=== PATIENT | male | born 2000 | race Caucasian/White ===

== ENCOUNTER 2020-12-09 14:47 | Inpatient (IN) | payer MEDICAID, OTHER ==
[2020-12-09 17:42] LABS: Amphetamine Screen,Urine Not Detected (NotDetected); Barbiturate Screen,Urine Not Detected (NotDetected); Benzodiazepines Screen,Urine Not Detected (NotDetected); Cocaine Screen,Urine Not Detected (NotDetected); Methadone Screen, Urine Not Detected (NotDetected); Opiate Screen,Urine Not Detected (NotDetected); Oxycodone Screen, Urine Not Detected (NotDetected); Phencyclidine Screen,Urine Not Detected (NotDetected); Tricyclic Antidepressant,Urine Not Detected (NotDetected); Urn Cannabinoid Scrn Detected (NotDetected)
--- NOTE | 2020-12-09 19:59 | ED ---
Psych HPI - General Chief Complaint: Psychiatric Symptoms Stated Complaint: mental health Time Seen by Provider: 12/09/20 16:21 Source: patient Mode of arrival: ambulatory - History of Present Illness Initial Comments: This 20-year-old white male presents with a complaint of depression. He has a long-standing history of depression but it has been worse recently. He has thoughts of suicide at times but states that he would never act on it. He apparently was started on a depression medication yesterday as well as some but this does not seem to have alleviated his symptomatology. He is denying any hallucinations or delusions. He is presenting with family are requesting a mental health evaluation for further treatment and her recommendations. He denies any medical complaints currently. - Related Data Home Medications Medication Instructions Recorded Confirmed Escitalopram [Lexapro] 10 mg PO DAILY 12/09/20 12/09/20 busPIRone HCl [Buspar] 5 mg PO BID 12/09/20 12/09/20 Allergies Allergy/AdvReac Type Severity Reaction Status Date / Time No Known Allergies Allergy Verified 12/09/20 15:36 Review of Systems ROS Statement: Those systems with pertinent positive or pertinent negative responses have been documented in the HPI. ROS Other: All systems not noted in ROS Statement are negative. Past Medical History Past Medical History: No Reported History Additional Past Medical History / Comment(s): covid 09/05 History of Any Multi-Drug Resistant Organisms: None Reported Past Surgical History: No Surgical Hx Reported Past Psychological History: No Psychological Hx Reported Smoking Status: Never smoker Past Alcohol Use History: Rare Past Drug Use History: None Reported General Exam - General Exam Comments Initial Comments: GENERAL: The patient is well nourished and well hydrated. VITAL SIGNS: Heart rate, blood pressure, respiratory rate reviewed as recorded in nurse's notes. EYES: Pupils are round and reactive. Extraocular movements are intact. No conjunctival / lid redness or swelling. ENT: No external evidence of injury, swelling, or ecchymosis. Airway is patent. Throat is clear. NECK: Nontender. No swelling or evidence of injury. No subcutaneous emphysema. Trachea is midline. No thyroid mass. HEART: Regular rate and rhythm. Good peripheral pulses. LUNGS/CHEST: Breath sounds clear and equal bilaterally. No rales, rhonchi, or wheezes. No ecchymosis, subcutaneous emphysema, or tenderness. ABDOMEN: Abdomen soft without tenderness. No palpable masses or organomegaly. No peritoneal signs. No abdominal wall swelling or ecchymosis. EXTREMITIES: No extremity tenderness. Normal muscle tone and function. No thoracolumbar tenderness. NEUROLOGIC: Sensation is grossly intact. Cranial nerve exam reveals face is symmetrical, tongue is midline, speech is clear. SKIN: No abrasions or ecchymosis is noted. No induration or masses noted. PSYCHIATRIC: Alert and oriented. Appropriate behavior and judgment. Limitations: no limitations Course Vital Signs 12/09/20 15:30 Temperature 97.7 F Pulse Rate 56 L Respiratory 18 Rate Blood Pressure 140/92 O2 Sat by Pulse 99 Oximetry Medical Decision Making - Medical Decision Making The patient was seen and examined. All diagnostics were reviewed. The breath alcohol test was negative. It is felt as though the patient is medically cleared for further psychiatric evaluation. Anthony is discussed with the psychiatric nurse and she feels as though patient would require inpatient psychiatric treatment. He will be transferred to our inpatient psychiatric unit in the near future. - Lab Data Lab Results 12/09/20 Range/Units 17:09 Urine Opiates Screen Not Detected (NotDetected) Ur Oxycodone Screen Not Detected (NotDetected) Urine Methadone Screen Not Detected (NotDetected) Ur Propoxyphene Screen Not Detected (NotDetected) Ur Barbiturates Screen Not Detected (NotDetected) U Tricyclic Antidepress Not Detected (NotDetected) Ur Phencyclidine Scrn Not Detected (NotDetected) Ur Amphetamines Screen Not Detected (NotDetected) U Methamphetamines Scrn Not Detected (NotDetected) U Benzodiazepines Scrn Not Detected (NotDetected) Urine Cocaine Screen Not Detected (NotDetected) U Marijuana (THC) Screen Detected H (NotDetected) Disposition Clinical Impression: Depression Disposition: ADMITTED IP TO THIS [facility] Condition: Fair Referrals: Ramana Cabello MD [Primary Care Provider] - 1-2 days Time of Disposition: 20:45 Decision Date: 12/09/20 Decision Time: 20:46
[2020-12-09] MEDS ORDERED: MAG HYDROX/AL HYDROX/SIMETH 30 ML CUP PO PRN (21:33)
[2020-12-09] MEDS ORDERED: LORazepam 1 MG TAB PO PRN (21:33)
[2020-12-09] MEDS ORDERED: MAGNESIUM HYDROXIDE 2,400 MG/10 ML CUP PO PRN (21:33)
[2020-12-09] MEDS ORDERED: ACETAMINOPHEN TAB 325 MG TAB PO PRN (21:33)
[2020-12-09] MEDS ORDERED: LORazepam 2 MG/ML INJ IM PRN (21:35)
[2020-12-09] MEDS ORDERED: HALOPERIDOL LACTATE 5 MG/ML 1 ML VIAL IM PRN (21:36)
[2020-12-10] MEDS: NICOTINE 14MG/24HR PATCH TRANSDERM SCH (08:44)
[2020-12-10 12:05] LABS: Basophils % (A) 0 %; Eosinophils # (A) 0.2 k/uL (0-0.7); Eosinophils % (A) 2 %; HCT 45.2 % (39.0-53.0); HGB 15.3 gm/dL (13.0-17.5); Lymphocytes # (A) 1.5 k/uL (1.0-4.8); Lymphocytes % (A) 23 %; MCH 27.6 pg (25.0-35.0); MCHC 33.8 g/dL (31.0-37.0); MCV 81.8 fL (80.0-100.0); Monocytes # (A) 0.5 k/uL (0-1.0); Monocytes % (A) 8 %; Neutrophils # (A) 4.1 k/uL (1.3-7.7); Neutrophils % (A) 64 %; Platelet Count 206 k/uL (150-450); RBC 5.53 m/uL (4.30-5.90); RDW 13.8 % (11.5-15.5); WBC 6.5 k/uL (3.8-10.6)
[2020-12-10 12:24] LABS: ALT 13 U/L (4-49); AST 26 U/L (17-59); African American GFR (CKD) >90 (>60 ml/min/1.73 sqM); Albumin 4.7 g/dL (3.5-5.0); Alkaline Phosphatase 66 U/L (38-126); Anion Gap 10 mmol/L; Blood Urea Nitrogen 14 mg/dL (9-20); Calcium 9.9 mg/dL (8.4-10.2); Carbon Dioxide 29 mmol/L (22-30); Chloride 101 mmol/L (98-107); Glucose 81 mg/dL (74-99); Non-African American GFR(CKD) >90 (>60 ml/min/1.73 sqM); Potassium 4.7 mmol/L (3.5-5.1); Sodium 140 mmol/L (137-145); Total Bilirubin 0.9 mg/dL (0.2-1.3); Total Protein 7.7 g/dL (6.3-8.2)
[2020-12-10] MEDS: ESCITALOPRAM 20 MG TAB PO SCH (12:59)
--- NOTE | 2020-12-10 16:10 | HP ---
HISTORY AND PHYSICAL DATE OF SERVICE: 12/10/2020 IDENTIFYING DATA: The patient is a 20-year-old male. He lives with his mother and 2 siblings. He was referred through the ED for evaluation. CHIEF COMPLAINT: The patient has been depressed. He had suicide thinking. He said he "broke down on Sunday." HISTORY OF PRESENTING ILLNESS: The patient was the primary source of information. Patient has not had a prior psychiatric hospitalization. The patient reports a long-term problems with depression. He seems to indicate that depression goes back about 4 years when his father from diabetes. He said that he would get some brief periods of having low mood, though that would typically go away. He said this past February at the anniversary of his father's passing, things seem to get worse for him. He could not really describe why. He has had on and off depression over the last several months though he says for the most part, he has been able to manage it and has not been severe. He notes that over the last several days, things seem to be building up for him. He said he had a difficult day at work a week ago and then that led into a "bad weekend." He was avoiding people including his family. He was not responding to messages from his mother. He was quite withdrawn. He said on Sunday he just broke down. He started crying. He was in a very distressed state. He could not explain what led to this as far as any particular event or situation. He since has had thoughts of suicide. He notes that he does not have any plan or intent. He has not had a history of self harmful behavior. He was started on some psychotropic medications through his family doctor, Dr. Cabello. Just in the last several days, he got started on BuSpar and then just a day or 2 ago he was also started on Lexapro 10 mg a day. He has only taken the Lexapro for 1 day. He has not had any problems with the start of these medications. He does not note any issues with hallucinations or delusional thinking. He says he does get anxiety that will come and go. Sometimes he feels that he has fairly bad anxiety though he does some relaxation techniques and seems to be able to handle that. He does not identify panic symptoms. He does not identify any past trauma or post-traumatic issues. He says if he goes back a month or so ago he had fairly good motivation, energy and interest. He could enjoy things. He involved himself in boxing in the morning time as one of his outlets. He says he has just started in boxing and has not gotten into any situation where he has gotten hit in the head. He notes that he generally sleeps okay, though he does have a somewhat difficult sleep schedule as he works 2nd shift. He gets off of work at 11:00 pm. He will be up until about 3 or 4 in the morning just with unwinding and doing some personal activities. He says that on the weekend, he does spend time with friends and has some reasonable social outlets. He is admitted for further evaluation. The patient has been in some individual counseling. He said for a period of time he was in counseling in [id number] sessions. He then went to virtual sessions. He stopped counseling a few months ago, though says he wants to get back with his counselor. SUBSTANCE USE HISTORY: Patient reports no significant substance use issues. He says he smokes marijuana perhaps once a week or once every other week, though not more than that. He does drink alcohol but very infrequently. PAST MEDICAL HISTORY: Patient does not report any significant or chronic general health complaints. FAMILY AND SOCIAL HISTORY: The patient currently is living with his mother and 2 younger siblings, a brother and sister. He said his parents when he was around age 3. 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 He says sometimes the work is stressful. He notes that he was active during his teenage years with sports. He graduated from high school. He did 1 semester at [employer] in criminal justice. He did another semester, though then gave up on his college education at the time that his father . He has been working as a LAN/WAN ENGINEER for 1 year. He says he has an interest in going into a nursing. MENTAL STATUS EXAM: Patient sat with some restlessness. He gave fair eye contact. He tended to look down or away on off through the interview. He answered questions with brief responses. His thoughts were clear, coherent and goal-directed. He did not say a lot. He was not spontaneous or interactive. His affect was flat. His mood depressed. He was moderately distressed. There was no indication of thought disorder. He acknowledged some thoughts about suicide, though noted no plan, intent or history of self harm. On cognitive exam, he was oriented x3 and alert. He could recall 2/3 objects in 4 minutes. He could give the days of the week in reverse order without difficulty. He had fair insight and judgment. Fund of knowledge was average or somewhat above average. ASSESSMENT: This 20-year-old male is diagnosed with major depression. He had some possible issues with unresolved grief with the loss of his father that may have intensified depression. He has had high stress over the last week that set off his current situation leading to him coming into the hospital. STRENGTHS: Include [place] [employer] and his focus on going into the healthcare profession. WEAKNESS: Includes struggles with anxiety and grief. DIAGNOSES: Major depression, without psychotic features. RECOMMENDATIONS: Patient will be admitted for comprehensive medical psychiatric and psychosocial evaluation. We will engage the patient in individual and group therapeutic activities. We will continue the patient on Lexapro. His dose will be increased to 20 mg a day. I had an extensive discussion with the patient regarding treatment issues related to antidepressants. We talked about the time course for treatment and expectations. I reviewed potential side effects. We will look to coordinate with his primary care physician in regards to continued treatment for depression. I would also coordinate with his therapist for followup individual counseling. We will focus on stabilization and discharge planning. AUSTIN / MARCOS: [id number] /
--- NOTE | 2020-12-10 17:33 | CONS ---
CONSULTATION CHIEF COMPLAINT: Major depression. HISTORY OF PRESENT ILLNESS: This is a first admission for this 20-year-old white male. He became depressed and has been in the office recently for this, but was not suicidal. Over the last year or two he has lost his father and grandfather. He was not contemplating suicide. REVIEW OF SYSTEMS: He has had no headaches, neurologic problems, difficulty with vision or hearing, chest pain, shortness of breath, cough, hemoptysis, hypertension, heart disease, murmurs, abdominal pain, nausea, vomiting, hematemesis, melena, hematochezia, jaundice, hepatitis, renal failure, frequency, urgency and dysuria, incontinence, nocturia, diabetes, etc. Past medical history, family history and personal and social histories are otherwise unremarkable and noncontributory. He has been given a trial on Buspar, which does not seem to help a great deal. He is not allergic to any medications. He has had no surgery. He does not smoke. Drinks alcohol occasionally. He is employed as a GOPAL in a assisted. PHYSICAL EXAMINATION: Blood pressure 122/80, pulse of 80, respirations 16. He is afebrile. In general he appeared to be slender in no acute distress. Skin color is normal. Skin is warm, dry. Lymph nodes were not enlarged. Head, ears, eyes, nose, mouth and throat were normal. Neck veins not distended. Thyroid not enlarged. Chest is clear. Cardiac exam is normal. Abdomen is soft, nontender. Extremities: Normal. Neurologically he is intact. IMPRESSION: He is admitted to the hospital with diagnosis: 1. Major depression. PLAN: No recommended changes to program. MMODL / IJN: [id number] /
[2020-12-10 20:17] LABS: Chol/HDL Ratio 3.76; Cholesterol 139 mg/dL (0-200); LDL Cholesterol,Calculated 90.8 mg/dL (0.0-131.0)
[2020-12-10 22:20] LABS: Estimated Average Glucose 116.89; Hemoglobin A1C 5.7 % (4.0-6.0)
[2020-12-11] MEDS: ESCITALOPRAM 20 MG TAB PO SCH (08:45)
[2020-12-11] MEDS: NICOTINE 14MG/24HR PATCH TRANSDERM SCH (08:46)
--- NOTE | 2020-12-11 15:11 | P.PN ---
Progress Note - Text Progress Note Date: 12/11/20 Clinical Problems: Major depressive disorder without psychotic features Interim history: I reviewed the medical record and interviewed the patient. He is a 20-year-old single male who presented to the psychiatric unit voluntarily plans of increasing depression and suicidal ideation. He described increasing depression since at least February 2020 and on the day of admission became markedly distressed and tearful. He told the EPS nurse that he was having thoughts of suicide. He denied use of alcohol or drugs. His urine drug screen was positive only for marijuana. He described improvement in his depression with the increasing dose of Lexapro. His current dose is 20 mg per day. He described being able to concentrate and socialize with staff or peers. He denied that he is currently having suicidal thoughts. Mental status exam: . He presented as a casually groomed young male who was pleasant on approach. He made eye contact and attended to the interview. He had no prominent physical abnormalities. He had a blunted facial expression. He had slight psychomotor retardation but no abnormal involuntary movements. His affect was depressed and minimally reactive. She denied suicidal ideations, wishes or homicidal ideation. He denied feeling hopeless, helpless or worthless. He didn't express ideas reference, paranoid ideation or delusions. His sticking was concrete but his associations were coherent, logical goal directed. He denied hallucinations didn't appear to be responding to internal stimuli. Assessment: He is moderately mentally ill and much improved from admission. He is denying suicidal ideation lacking control over her emotions. Plan: He knew inpatient treatment. Safety precautions. Plan discharge on 12/13/2020. Continue Lexapro 20 mg daily. Ativan/Haldol when necessary for agitation, anxiety acute psychosis. Her maternal for smoking cessation. cinder crew worker to coordinate aftercare including referral for individual therapy. Encouraged continued participation in therapy groups and activities. Evaluate clinical status response to treatment daily basis.
[2020-12-12] MEDS: NICOTINE 14MG/24HR PATCH TRANSDERM SCH (08:43)
[2020-12-12] MEDS: ESCITALOPRAM 20 MG TAB PO SCH (08:44)
--- NOTE | 2020-12-12 15:13 | P.PN ---
Progress Note - Text Progress Note Date: 12/12/20 Clinical Problems: Major depressive disorder without psychotic features Interim history: I reviewed the medical record and interviewed the patient. He denied problems or concerns other than discharge. He feels much less depressed admission and is denying that he is currently experiencing thoughts of or suicide. He is not attending therapeutic groups and activities. He spends much of his time alone in bed, for meals and medications. He slept 6 hours last night. Mental status exam: . He presented as a casually groomed young male who was pleasant on approach. He made eye contact and attended to the interview. He had no prominent physical abnormalities. He had a blunted facial expression. He had slight psychomotor retardation but no abnormal involuntary movements. His affect was depressed and minimally reactive. She denied suicidal ideations, wishes or homicidal ideation. He denied feeling hopeless, helpless or worthless. He didn't express ideas reference, paranoid ideation or delusions. His sticking was concrete but his associations were coherent, logical goal directed. He denied hallucinations didn't appear to be responding to internal stimuli. Assessment: He is moderately mentally ill and moderately improved from admission. He is denying suicidal ideation lacking control over her emotions. Plan: Continue inpatient treatment. Safety precautions. Plan discharge on 12/13/2020. Continue Lexapro 20 mg daily. Ativan/Haldol when necessary for agitation, anxiety acute psychosis. Her maternal for smoking cessation. harm reduction worker to coordinate aftercare including referral for individual therapy. Encouraged continued participation in therapy groups and activities. Evaluate clinical status response to treatment daily basis.
[2020-12-13] MEDS: NICOTINE 14MG/24HR PATCH TRANSDERM SCH (09:00)
[2020-12-13] MEDS: ESCITALOPRAM 20 MG TAB PO SCH (09:00)
--- NOTE | 2020-12-13 09:21 | P.PN ---
Progress Note - Text Progress Note Date: 12/13/20 Interval History: Patient was seen lying in his bed this morning and was directable and agreeable to speak with radio script writer in the office. He appears to be fairly directable and cooperative during the interview. He was constricted at times and his affect however states that he is gradually improving in terms of his mood and is denying any anxiety today. He states that he came in on Sunday because he was having "a mental breakdown" mainly triggered by the of his father. He states that he had a difficult time sleeping last night and required Ativan. She was agreeable to try trazodone for tonight. He states that he has been trying to go to some groups. At this time patient denies any suicidal or homical ideations, intent or plan. Patient denies any auditory, visual hallucinations and denies any paranoia or delusions. Patient denies any side effects from the medications and has been compliant with meds. Mental Status Exam: General Appearance: Patient appears to be stated age is alert, directable, and cooperative. Constricted Behavior: Patient is calmly seated without any agitated behavior. Attempts to cooperate Speech: Patient's speech is fluent and nonpressured. Mood/Affect: Mood is improving mildly, affect is congruent and constricted. Suicidality/Homicidality: Patient denies having any suicidal or homicidal ideation intent or plan. Perceptions: Patient denies any visual hallucinations and denies any auditory hallucinations Though content/process: [place], goal oriented. Not endorsing any delusions or paranoia. Memory and concentration: AOX3, grossly intact for the purposes of this session Judgment and insight: Improving mildly Assessment Major depressive disorder, without psychotic features Cannabis use disorder Nicotine dependence Plan: -Patient continues to meet criteria for inpatient psychiatric admission for symptom stabilization and safety. Patient has signed adult voluntary form and medication consent and was placed in patient's chart. -Medications: Continue with Lexapro 20 mg daily for mood/anxiety. Added trazodone 25 mg daily at bedtime for insomnia/mood. Discussed with patient the risk of priapism and to seek urgent medical attention if this does occur, patient verbally understood and agreed -When necessary Ativan and Haldol for agitation/aggression. -NRT - nicotine patch -SW on board for discharge planning. Encouraged the patient to participate in milieu. The patient does well overnight and likely discharge tomorrow. electronics worker to contact family and ensure a safe discharge plan for tomorrow.
[2020-12-13] MEDS ORDERED: traZODone HCL 50 MG TAB PO SCH (21:00)
[2020-12-14 06:56] VITALS: BP 107/76; PULSE 56; RESP 18; TEMP 97.3
[2020-12-14] MEDS: ESCITALOPRAM 20 MG TAB PO SCH (08:32)
--- NOTE | 2020-12-14 10:30 | P.DS ---
Providers Date of admission: 12/09/20 21:30 Expected date of discharge: 12/14/20 Attending physician: Iraj Rojas MD Consults: 12/09/20 21:33 Consult Physician Routine Consulting Provider: Ramana Cabello Consult Reason/Comments: medical management Do you want consulting provider notified?: Yes, Notify in am Primary care physician: Ramana Cabello - Discharge Diagnosis(es) (1) Major depressive disorder without psychotic features Current Visit: Yes Status: Acute Priority: High (2) Cannabis use disorder, mild, abuse Current Visit: Yes Status: Acute Priority: Medium (3) Nicotine dependence Current Visit: Yes Status: Acute Priority: Low Hospital Course: Admission HPI: Admission note was completed by Dr. Christiansen "the patient is a 20-year-old male. He lives with his mother and 2 siblings. He was referred to the ED for evaluation. The patient has been depressed. He had suicidal thinking. He said he "broke down on Sunday". The patient was the primary source of information. The patient has not had any prior psychiatric hospitalization. The patient repo rts a long-term problems with depression. He seems to indicate that depression goes back about 4 years when his father from diabetes. He said that he would get some brief periods of having low mood, though that would typically go away. He said this past February the anniversary of his father's passing, things seemed to get worse for him. He could not really describe why. He said he has had on and off depression over the last several months though he says for the most part he has been able to manage it and has not been severe. He notes that over the last several days things seem to be building up for him. He said he had a difficult day at work a week ago and then that led into a "bad weekend". He was avoiding people including his family. He was not responding to messages from his mother. He was quite withdrawn. He said on Sunday he just broke down. He started crying. He was in a very distressed state. He could not explain what led to this as far as any particular event or situation. He since has had thoughts of suicide. He notes that he does not have any plan or intent. He has not had a history of self harmful behavior. He was started on some psychotropic medications through his family doctor, Dr. Cabello. Just in the last several days he got started on BuSpar and then just a day or 2 ago he was also started on Lexapro 10 mg a day. He was only taken the Lexapro for 1 day. He has not had any problems with the start of these medications. He does not note any issues with hallucinations or delusions. He says he does get anxiety that will come and go. Sometimes he feels that he has fairly bad anxiety though he does some relaxation techniques and seems to be able to handle that. He does not identify panic symptoms. He does not identify any past trauma or posttraumatic issues. He says if he goes back a month or so ago he had fairly good motivation and energy and interest. He could enjoy things. He involved himself in boxing in the morning time as one of his outlets. He says he just started in boxing and has not gotten into any situation where he has gotten hit in the head. He notes that he generally sleeps okay though he does have a somewhat difficult sleep schedule as he works second shift. He gets off of work at 11 PM. He will be up until about 3 or 4 in the morning just with unwinding and doing some personal activities. He says that on the weekend he does spend time with his friends and has some reasonable social and less. He is admitted for further evaluation." Hospital course: Upon admission to the unit patient was initially depressed and anxious. Patient was however directable and agreeable to commence treatment and signed adult voluntary form. Patient got along well with other patients on the unit and followed unit protocol. Patient was compliant with the medications and denied any side effects throughout hospital course. Patient was started on Lexapro and titrated up to dose of 20 mg daily for mood/anxiety. Patient was also started on trazodone 25 mg daily at bedtime for insomnia/mood. Patient spoke of his stressors and engaged in therapy both group and individual. Patient was also seen by medical team for history and physical exam. Throughout the course of the hospitalization patient gradually improved with regards to mood, anxiety, sleep and became more future oriented with improved insight and judgment. On the day of discharge patient denied any suicidal or homicidal ideations intent or plan denied any auditory or visual hallucinations. Patient endorsed wanting to live for his health and family. The patient denied any access to guns or weapons. Patient denied any paranoia and did not endorse any delusions. Patient does not have a significant history of substance abuse however was counseled on abstaining from all substances including alcohol and marijuana. Patient was also counseled on the medications and need for regular compliance and was encouraged to follow-up with their outpatient appointment for mental health and also for primary care. Prior to discharge a family meeting will be arranged by high school social science teacher to answer any questions and ensure safety upon discharge. Mental status exam: General Appearance: Patient appears to be stated age is alert, pleasant, and cooperative. Patient is in no acute distress and has improved hygiene and grooming Behavior: Patient is calmly seated without any agitated behavior. Speech: Patient's speech is fluent and nonpressured. Mood/Affect: Patient reports their mood is "better", affect is congruent and euthymic. Suicidality/Homicidality: Patient denies having any suicidal or homicidal ideation intent or plan. Perceptions: Patient denies any auditory or visual hallucinations. Though content/process: There is no evidence of any delusional thought content and thought process is linear and goal-directed. more future oriented Memory and concentration: AOX3, grossly intact for the purposes of this session. Can spell "WORLD" backwards correctly. Judgment and insight: improved with guarded prognosis Impression: Major depressive disorder, without psychotic features Cannabis use disorder mild Nicotine dependence Plan: -Continue with discharge today as patient has improved and stabilized psychiatrically and is not currently an imminent threat to himself and/or others. -Continue medications: Lexapro 20mg daily for mood/anxiety, trazodone 25 mg daily at bedtime for insomnia/mood. -Patient was counseled on the need for medication compliance and appropriate follow-up at mental health and also primary care for medical issues. Patient verbalized understanding and agreed. -Social work to arrange for and conduct family meeting to ensure safety upon discharge and answer any questions/concerns. Social work also to arrange for patients follow up appointments with [facility] for psychiatric care along with follow up with primary care provider. -Patient counseled on abstaining from recreational drugs and marijuana and alcohol. Was informed/educated on the adverse effects on their physical and mental health. Patient verbally agreed and understood. -Patient was instructed to return to the hospital or seek immediate medical care if their psychiatric or medical symptoms do worsen or reoccur. Allergies Allergy/AdvReac Type Severity Reaction Status Date / Time No Known Allergies Allergy Verified 12/09/20 15:36 Laboratory Results WBC 6.5 k/uL (3.8-10.6) 12/10/20 11:38 RBC 5.53 m/uL (4.30-5.90) 12/10/20 11:38 Hgb 15.3 gm/dL (13.0-17.5) 12/10/20 11:38 Hct 45.2 % (39.0-53.0) 12/10/20 11:38 MCV 81.8 fL (80.0-100.0) 12/10/20 11:38 MCH 27.6 pg (25.0-35.0) 12/10/20 11:38 MCHC 33.8 g/dL (31.0-37.0) 12/10/20 11:38 RDW 13.8 % (11.5-15.5) 12/10/20 11:38 Plt Count 206 k/uL (150-450) 12/10/20 11:38 MPV 8.0 12/10/20 11:38 Neutrophils % 64 % 12/10/20 11:38 Lymphocytes % 23 % 12/10/20 11:38 Monocytes % 8 % 12/10/20 11:38 Eosinophils % 2 % 12/10/20 11:38 Basophils % 0 % 12/10/20 11:38 Neutrophils # 4.1 k/uL (1.3-7.7) 12/10/20 11:38 Lymphocytes # 1.5 k/uL (1.0-4.8) 12/10/20 11:38 Monocytes # 0.5 k/uL (0-1.0) 12/10/20 11:38 Eosinophils # 0.2 k/uL (0-0.7) 12/10/20 11:38 Basophils # 0.0 k/uL (0-0.2) 12/10/20 11:38 Sodium 140 mmol/L (137-145) 12/10/20 11:38 Potassium 4.7 mmol/L (3.5-5.1) 12/10/20 11:38 Chloride 101 mmol/L (98-107) 12/10/20 11:38 Carbon Dioxide 29 mmol/L (22-30) 12/10/20 11:38 Anion Gap 10 mmol/L 12/10/20 11:38 BUN 14 mg/dL (9-20) 12/10/20 11:38 Creatinine 1.12 mg/dL (0.66-1.25) 12/10/20 11:38 Est GFR (CKD-EPI)AfAm >90 (>60 ml/min/1.73 sqM) 12/10/20 11:38 Est GFR (CKD-EPI)NonAf >90 (>60 ml/min/1.73 sqM) 12/10/20 11:38 Glucose 81 mg/dL (74-99) 12/10/20 11:[address] Glu mg/dL 116.89 12/10/20 11:38 Hemoglobin A1c 5.7 % (4.0-6.0) 12/10/20 11:38 Calcium 9.9 mg/dL (8.4-10.2) 12/10/20 11:38 Total Bilirubin 0.9 mg/dL (0.2-1.3) 12/10/20 11:38 AST 26 U/L (17-59) 12/10/20 11:38 ALT 13 U/L (4-49) 12/10/20 11:38 Alkaline Phosphatase 66 U/L (38-126) 12/10/20 11:38 Total Protein 7.7 g/dL (6.3-8.2) 12/10/20 11:38 Albumin 4.7 g/dL (3.5-5.0) 12/10/20 11:38 Triglycerides 56.0 mg/dL (0.0-149.0) 12/10/20 11:38 Cholesterol 139 mg/dL (0-200) 12/10/20 11:38 LDL Cholesterol, Calc 90.8 mg/dL (0.0-131.0) 12/10/20 11:38 VLDL Cholesterol, Calc 11.20 mg/dL (5.00-40.00) 12/10/20 11:38 HDL Cholesterol 37.0 mg/dL (40.0-60.0) L 12/10/20 11:38 Cholesterol/HDL Ratio 3.76 12/10/20 11:38 TSH 1.040 mIU/L (0.465-4.680) 12/10/20 11:38 Urine Opiates Screen Not Detected (NotDetected) 12/09/20 17:09 Ur Oxycodone Screen Not Detected (NotDetected) 12/09/20 17:09 Urine Methadone Screen Not Detected (NotDetected) 12/09/20 17:09 Ur Propoxyphene Screen Not Detected (NotDetected) 12/09/20 17:09 Ur Barbiturates Screen Not Detected (NotDetected) 12/09/20 17:09 U Tricyclic Antidepress Not Detected (NotDetected) 12/09/20 17:09 Ur Phencyclidine Scrn Not Detected (NotDetected) 12/09/20 17:09 Ur Amphetamines Screen Not Detected (NotDetected) 12/09/20 17:09 U Methamphetamines Scrn Not Detected (NotDetected) 12/09/20 17:09 U Benzodiazepines Scrn Not Detected (NotDetected) 12/09/20 17:09 Urine Cocaine Screen Not Detected (NotDetected) 12/09/20 17:09 U Marijuana (THC) Screen Detected (NotDetected) H 12/09/20 17:09 Coronavirus (PCR) Not Detected (Not Detectd) 12/09/20 20:43 Vital Signs Temp 97.3 F L 12/14/20 06:00 Pulse 56 L 12/14/20 06:00 Resp 18 12/14/20 06:00 BP 107/76 12/14/20 06:00 Pulse Ox 99 12/09/20 15:30 Abnormal Labs 12/09/20 12/10/20 17:09 11:38 HDL Cholesterol 37.0 L U Marijuana (THC) Screen Detected H Patient Condition at Discharge: Stable Plan - Discharge Summary Discharge Rx Participant: No New Discharge Prescriptions: New Escitalopram [Lexapro] 20 mg PO DAILY 30 Days tab traZODone HCL [Desyrel] 25 mg PO HS 30 Days tab Acetaminophen Tab [Tylenol] 650 mg PO Q4HR PRN tab PRN Reason: Pain/Discomfort Discontinued busPIRone HCl [Buspar] 5 mg PO BID Escitalopram [Lexapro] 10 mg PO DAILY Discharge Medication List Acetaminophen Tab [Tylenol] 650 mg PO Q4HR PRN tab 12/14/20 [Rx] Escitalopram [Lexapro] 20 mg PO DAILY 30 Days tab 12/14/20 [Rx] traZODone HCL [Desyrel] 25 mg PO HS 30 Days tab 12/14/20 [Rx] Follow up Appointment(s)/Referral(s): [facility] [Outside] - 12/15/20 10:00 am (with Cathi ) Ramana Cabello MD [Primary Care Provider] - 1-2 days Activity/Diet/Wound Care/Special Instructions: Activity and diet as tolerated. Avoid the use of street drugs and alcohol. Take all medications as prescribed. When you are in need of refills on your medications please contact your medical provider and/or outpatient psychiatrist to have this done. Please go to scheduled outpatient appointment for aftercare treatment. If symptoms return or become worse, call the crisis line at and/or go to the nearest emergency room for evaluation. Discharge Disposition: HOME SELF-CARE
== END 2020-12-14 11:38 | disposition home or self-care (01) | DRG 881 ==
LOC: EC 14:47 → 3MHU 21:30
PROVIDERS: ADMIT Psychiatry & Neurology Psychiatry; ATTEND Psychiatry & Neurology Psychiatry
DX: F32.9 Major depressive disorder, single episode, unspecified (principal); R45.851 Suicidal ideations; F12.10 Cannabis abuse, uncomplicated; F17.200 Nicotine dependence, unspecified, uncomplicated; F41.9 Anxiety disorder, unspecified; G47.00 Insomnia, unspecified; Z79.899 Other long term (current) drug therapy; Z83.3 Family history of diabetes mellitus; Z20.822 Contact with and (suspected) exposure to COVID-19
CPT/HCPCS: 80053; 80061; 80306; 82075; 83036; 84443; 85025; 87635; 99285

== ENCOUNTER 2020-12-30 12:20 | Emergency (ER) | payer OTHER ==
[2020-12-30 12:33] VITALS: BP 125/80; PULSE 81; RESP 20; TEMP 97.7
--- NOTE | 2020-12-30 13:21 | ED ---
Upper Extremity HPI - General Chief Complaint: Extremity Injury, Upper Stated Complaint: R Pinky Injury Time Seen by Provider: 12/30/20 12:47 Source: patient Mode of arrival: ambulatory Limitations: no limitations - History of Present Illness Initial Comments: Patient is a 20-year-old male presenting to the emergency Department with complaints of pain in his right fifth digit. He states he was carrying an object and tripped and object fell on top of his fifth digit. He denies any pain of his right hand or right wrist. Denies any other injuries from this fall. He has no further complaints. - Related Data Previous Rx's Medication Instructions Recorded Acetaminophen Tab [Tylenol] 650 mg PO Q4HR PRN tab 12/14/20 Escitalopram [Lexapro] 20 mg PO DAILY 30 Days tab 12/14/20 traZODone HCL [Desyrel] 25 mg PO HS 30 Days tab 12/14/20 Allergies Allergy/AdvReac Type Severity Reaction Status Date / Time No Known Allergies Allergy Verified 12/30/20 12:33 Review of Systems ROS Statement: Those systems with pertinent positive or pertinent negative responses have been documented in the HPI. ROS Other: All systems not noted in ROS Statement are negative. Past Medical History Past Medical History: No Reported History Additional Past Medical History / Comment(s): covid 09/05 History of Any Multi-Drug Resistant Organisms: None Reported Past Surgical History: No Surgical Hx Reported Past Anesthesia/Blood Transfusion Reactions: No Reported Reaction Past Psychological History: No Psychological Hx Reported Smoking Status: Vaper Past Alcohol Use History: Rare Past Drug Use History: Marijuana General Exam - General Exam Comments Initial Comments: GENERAL: Patient is well-developed and well-nourished. Patient is nontoxic and in no acute distress. HEAD: Atraumatic, normocephalic. EYES: Pupils equal round and reactive to light, extraocular movements intact, sclera anicteric, conjunctiva are normal. Eyelids were unremarkable. LUNGS: Unlabored respirations. Breath sounds clear to auscultation bilaterally and equal. No wheezes rales or rhonchi. HEART: Regular rate and rhythm without murmurs, rubs or gallops. ABDOMEN: Soft, nontender, normoactive bowel sounds. No guarding, no rebound. No masses appreciated. MUSCULOSKELETAL: Patient has some mild pain with palpation of the right fifth digit, no pain of the right hand or right wrist. No deformity, very mild swelling present. No clubbing or cyanosis. SKIN: Warm, Dry, normal turgor, no rashes or lesions noted. Limitations: no limitations Course Vital Signs 12/30/20 12:31 Temperature 97.7 F Pulse Rate 81 Respiratory 20 Rate Blood Pressure 125/80 O2 Sat by Pulse 97 Oximetry Medical Decision Making - Medical Decision Making Patient is a 20-year-old male presenting with an injury to his right fifth digit after a fall. X-rays today show no acute fractures dislocations. Discussed with patient this is a contusion. Recommend ice to the area, ibuprofen for any discomfort. He is stable for discharge. Disposition Clinical Impression: Contusion of right little finger Disposition: HOME SELF-CARE Condition: Stable Instructions (If sedation given, give patient instructions): Contusion in Adults (ED) Additional Instructions: Please return to the Emergency Department if symptoms worsen or any other concerns. Recommend ice to the area and ibuprofen for discomfort. Follow-up with primary care physician if symptoms persist. Is patient prescribed a controlled substance at d/c from ED?: No Referrals: Ramana Cabello MD [Primary Care Provider] - 1-2 days Time of Disposition: 14:29
--- NOTE | 2020-12-30 14:21 | XR ---
EXAMINATION TYPE: XR finger RT DATE OF EXAM: 12/30/2020 COMPARISON: NONE HISTORY: Trauma. Pain 5th digit. TECHNIQUE: AP, oblique, and lateral coned-down views of the fifth digit of the right hand obtained. FINDINGS: No acute fracture. No dislocation. Joint spaces and alignment are normal. Normal mineraliza tion. No significant soft tissue swelling. IMPRESSION: No acute fracture or dislocation.
== END 2020-12-30 14:59 | disposition home or self-care (01) ==
LOC: EC 12:20
DX: S60.051A Contusion of right little finger without damage to nail, initial encounter (principal); F17.290 Nicotine dependence, other tobacco product, uncomplicated; F12.90 Cannabis use, unspecified, uncomplicated; Z86.16 Personal history of COVID-19; W20.8XXA Other cause of strike by thrown, projected or falling object, initial encounter
CPT/HCPCS: 99283

== ENCOUNTER 2022-05-25 14:13 | Emergency (ER) | payer OTHER ==
[2022-05-25 14:50] VITALS: BP 94/59; PULSE 64; RESP 16; TEMP 97.7
[2022-05-25 15:43] LABS: Basophils % (A) 0 %; Eosinophils # (A) 0.1 k/uL (0-0.7); Eosinophils % (A) 1 %; HCT 42.2 % (39.0-53.0); HGB 14.4 gm/dL (13.0-17.5); Lymphocytes # (A) 1.6 k/uL (1.0-4.8); Lymphocytes % (A) 17 %; MCH 27.5 pg (25.0-35.0); MCHC 34.1 g/dL (31.0-37.0); MCV 80.8 fL (80.0-100.0); Mean Platelet Volume 8.7; Monocytes # (A) 0.6 k/uL (0-1.0); Monocytes % (A) 6 %; Neutrophils % (A) 74 %; Platelet Count 213 k/uL (150-450); RBC 5.22 m/uL (4.30-5.90); RDW 13.2 % (11.5-15.5); WBC 9.4 k/uL (3.8-10.6)
[2022-05-25 15:55] LABS: ALT 21 U/L (4-49); AST 28 U/L (17-59); African American GFR (CKD) >90 (>60 ml/min/1.73 sqM); Albumin 4.6 g/dL (3.5-5.0); Alkaline Phosphatase 66 U/L (38-126); Anion Gap 8 mmol/L; Blood Urea Nitrogen 16 mg/dL (9-20); Calcium 9.5 mg/dL (8.4-10.2); Carbon Dioxide 29 mmol/L (22-30); Chloride 105 mmol/L (98-107); Glucose 95 mg/dL (74-99); Non-African American GFR(CKD) >90 (>60 ml/min/1.73 sqM); Sodium 142 mmol/L (137-145); Total Bilirubin 0.7 mg/dL (0.2-1.3); Total Protein 7.8 g/dL (6.3-8.2)
--- NOTE | 2022-05-25 16:42 | XR ---
EXAMINATION TYPE: XR chest 2V DATE OF EXAM: 05/25/2022 4:36 PM COMPARISON: None TECHNIQUE: XR chest 2V Frontal and lateral views of the chest. CLINICAL INDICATION:Male, 22 years old with history of Chest Pain; FINDINGS: Lungs/Pleura: There is no evidence of pleural effusion, focal consolidation, or pneumothorax. Pulmonary vascularity: Unremarkable. Heart/mediastinum: Cardiomediastinal silhouette is unremarkable. Musculoskeletal: No acute osseous pathology. IMPRESSION: No acute cardiopulmonary disease/process.
--- NOTE | 2022-05-25 19:00 | ED ---
General Adult HPI - General Chief complaint: Chest Pain Stated complaint: Chest pain Time Seen by Provider: 05/25/22 18:50 Source: patient, RN notes reviewed, old records reviewed Mode of arrival: EMS Limitations: no limitations - History of Present Illness Initial comments: This is a 22-year-old male who presents emergency Department complaining of some central chest tightness. Patient states she was at work eating when he got up from lunch she felt some central chest tightness he thought maybe his gastric reflux at first but didn't go away so they called EMS. When EMS gave him aspirin and nitroglycerin he didn't feel any relief he states the pain continued for another 22 and half hours. Patient states it slowly subsided now it is almost completely gone. Patient denies any difficulty breathing shortness of breath. Patient denies any diaphoretic episodes. Patient any nausea vomiting. Patient states he does have a history of some gastric reflux. Patient denies headache patient denies numbness weakness. Patient denies any lightheadedness or dizziness. Patient denies any swelling to her legs or calf tenderness. Patient denies any recent fever chills or cough. Patient denies a history of smoking but he states he does occasionally they. Patient denies diabetes hypertension high cholesterol. Patient denies any family history of heart disease. - Related Data Previous Rx's Medication Instructions Recorded Acetaminophen Tab [Tylenol] 650 mg PO Q4HR PRN tab 12/14/20 Escitalopram [Lexapro] 20 mg PO DAILY 30 Days tab 12/14/20 traZODone HCL [Desyrel] 25 mg PO HS 30 Days tab 12/14/20 Allergies Allergy/AdvReac Type Severity Reaction Status Date / Time No Known Allergies Allergy Verified 12/30/20 12:33 Review of Systems ROS Statement: Those systems with pertinent positive or pertinent negative responses have been documented in the HPI. ROS Other: All systems not noted in ROS Statement are negative. Past Medical History Past Medical History: No Reported History Additional Past Medical History / Comment(s): covid 09/05 History of Any Multi-Drug Resistant Organisms: None Reported Past Surgical History: No Surgical Hx Reported Past Anesthesia/Blood Transfusion Reactions: No Reported Reaction Past Psychological History: No Psychological Hx Reported Smoking Status: Vaper Past Alcohol Use History: Rare Past Drug Use History: Marijuana General Exam - General Exam Comments Initial Comments: GENERAL: Patient is well-developed and well-nourished. Patient is nontoxic and well- hydrated and is in no acute distress. ENT: Neck is soft and supple. No significant lymphadenopathy is noted. Oropharynx is clear. Moist mucous membranes. Neck has full range of motion without eliciting any pain. EYES: The sclera were anicteric and conjunctiva were pink and moist. Extraocular movements were intact and pupils were equal round and reactive to light. Eyel ids were unremarkable. PULMONARY: Unlabored respirations. Good breath sounds bilaterally. No audible rales rhonchi or wheezing was noted. CARDIOVASCULAR: There is a regular rate and rhythm without any murmurs gallops or rubs. ABDOMEN: Soft and nontender with normal bowel sounds. SKIN: Skin is clear with no lesions or rashes and otherwise unremarkable. NEUROLOGIC: Patient is alert and oriented x3. Cranial nerves II through XII are grossly intact. Motor and sensory are also intact. Normal speech, volume and content. Symmetrical smile. MUSCULOSKELETAL: Normal extremities with adequate strength and full range of motion. LYMPHATICS: No significant lymphadenopathy is noted PSYCHIATRIC: Normal psychiatric evaluation. Limitations: no limitations Course Vital Signs 05/25/22 14:47 Temperature 97.7 F Pulse Rate 64 Respiratory 16 Rate Blood Pressure 94/59 O2 Sat by Pulse 99 Oximetry Medical Decision Making - Medical Decision Making EKG was interpreted by me shows a sinus bradycardia at 53 bpm ID interval is on a 35 cardiac is 96 QT interval 412 QTC is 396 per patient's EKG shows no ST segment elevation or depression. - Lab Data Result diagrams: 05/25/22 15:19 05/25/22 15:19 Lab Results 05/25/22 05/25/22 05/25/22 Range/Units 15:19 15:19 15:19 WBC 9.4 (3.8-10.6) k/uL RBC 5.22 (4.30-5.90) m/uL Hgb 14.4 (13.0-17.5) gm/dL Hct 42.2 (39.0-53.0) % MCV 80.8 (80.0-100.0) fL MCH 27.5 (25.0-35.0) pg MCHC 34.1 (31.0-37.0) g/dL RDW 13.2 (11.5-15.5) % Plt Count 213 (150-450) k/uL MPV 8.7 Neutrophils % 74 % Lymphocytes % 17 % Monocytes % 6 % Eosinophils % 1 % Basophils % 0 % Neutrophils # 7.0 (1.3-7.7) k/uL Lymphocytes # 1.6 (1.0-4.8) k/uL Monocytes # 0.6 (0-1.0) k/uL Eosinophils # 0.1 (0-0.7) k/uL Basophils # 0.0 (0-0.2) k/uL Sodium 142 (137-145) mmol/L Potassium 4.0 (3.5-5.1) mmol/L Chloride 105 (98-107) mmol/L Carbon Dioxide 29 (22-30) mmol/L Anion Gap 8 mmol/L BUN 16 (9-20) mg/dL Creatinine 0.93 (0.66-1.25) mg/dL Est GFR (CKD-EPI)AfAm >90 (>60 ml/min/1.73 sqM) Est GFR (CKD-EPI)NonAf >90 (>60 ml/min/1.73 sqM) Glucose 95 (74-99) mg/dL Calcium 9.5 (8.4-10.2) mg/dL Magnesium 2.0 (1.6-2.3) mg/dL Total Bilirubin 0.7 (0.2-1.3) mg/dL AST 28 (17-59) U/L ALT 21 (4-49) U/L Alkaline Phosphatase 66 (38-126) U/L Troponin I <0.012 (0.000-0.034) ng/mL Total Protein 7.8 (6.3-8.2) g/dL Albumin 4.6 (3.5-5.0) g/dL Disposition Clinical Impression: Chest tightness Disposition: HOME SELF-CARE Condition: Good Instructions (If sedation given, give patient instructions): Chest Pain (ED), GERD (Gastroesophageal Reflux Disease) (ED) Is patient prescribed a controlled substance at d/c from ED?: No Referrals: Ramana Cabello MD [Primary Care Provider] - 1-2 days Time of Disposition: 18:59
== END 2022-05-25 19:18 | disposition home or self-care (01) ==
LOC: EC 14:13
DX: R07.89 Other chest pain (principal); F12.90 Cannabis use, unspecified, uncomplicated; F17.290 Nicotine dependence, other tobacco product, uncomplicated
CPT/HCPCS: 36415; 71046; 80053; 83735; 84484; 85025; 93005; 99285